=== PATIENT | female | born 1975 | race Caucasian/White ===

== ENCOUNTER 2020-05-26 09:41 | Outpatient (CLI) | payer OTHER ==
--- NOTE | 2020-05-26 11:01 | MMO ---
Left Breast MAMMO Unilat Diag [facility]DI LT+ISAMAR. CLINICAL HISTORY: Patient is 44 years old and is seen for diagnostic exam. The patient has no family history of breast cancer. The patient has no personal history of cancer. VIEWS: The views performed were: left craniocaudal spot compression magnification; left mediolateral oblique spot compression magnification; left mediolateral spot compression magnification; and left mediolateral with tomosynthesis. FILMS COMPARED: The present examination has been compared to prior imaging studies performed at [facility] on 05/12/2020, and at [facility] on 05/26/2020. This study has been interpreted with the assistance of computer-aided detection. MAMMOGRAM FINDINGS: There are scattered fibroglandular densities. There is a mass measuring 4 x 8 mm with circumscribed margins and associated benign appearing calcifications seen in the left breast. IMPRESSION: MASS IN THE LEFT BREAST IS PROBABLY BENIGN. FOLLOW-UP IN 6 MONTHS IS RECOMMENDED. SEPTATED CYST THE RESULTS OF THIS EXAM WERE SENT TO THE PATIENT. ACR BI-RADS Category 3 - Probably benign finding - short interval follow-up suggested. [facility] will notify the patient of the need for additional imaging services. MAMMOGRAPHY NOTE: 1. A negative mammogram report should not delay a biopsy if a dominant of clinically suspicious mass is present. 2. Approximately 10% to 15% of breast cancers are not detected by mammography. 3. Adenosis and dense breasts may obscure an underlying neoplasm. Reported by: LYNDSEY PONCE MD Electonically Signed: [id number]
--- NOTE | 2020-05-26 13:19 | ULT ---
LEFT BREAST ULTRASOUND: Date: 05/26/2020 HISTORY: Abnormal mammogram. On diagnostic mammogram, there is a density in the left breast at approximately the 6 o'clock positio n with some associated microcalcifications. FINDINGS: Ultrasound evaluation of the left breast performed at 6 o'clock, 3.0 cm from the nipple, demonstrates a minimally septated appearing cyst measuring 0.4 x 0.6 x 0.7 cm in size with a few associated micro calcifications. IMPRESSION: BI-RADS Category 3 - Probably benign findings. A 6 month follow-up left unilateral diagnostic mammogr am and left breast ultrasound is recommended for further assessment. Findings discussed with the patient, who is in agreement with proceeding to short-term surveillance i n 6 months. POS: OFF
== END 2020-05-26 09:42 | disposition home or self-care (01) ==
LOC: BICMAMMO 09:41
PROVIDERS: ATTEND Obstetrics & Gynecology
DX: R92.8 Other abnormal and inconclusive findings on diagnostic imaging of breast (principal); N63.20 Unspecified lump in the left breast, unspecified quadrant; N60.02 Solitary cyst of left breast
CPT/HCPCS: G0279